=== PATIENT | female | born 1980 | race Caucasian/White ===

== ENCOUNTER 2017-12-06 20:48 | Emergency (ER) | payer SELFPAY ==
[~2017-12-06] VITALS: Ht 172.7 cm; Wt 131.6 kg
[~2017-12-06 20:48] MED LIST: PARO30TA2 PO
[2017-12-06 21:25] VITALS: BP 130/69; PULSE 84; RESP 16; TEMP 99.3; O2SAT 99
--- NOTE | 2017-12-06 21:43 | PD ---
HPI . Headache Chief Complaint: Cold / Flu Symptoms Time Seen by Provider: 21:33 Travel History International Travel<30 days: No Contact w/Intl Traveler<30days: No Traveled to known affect area: No History of Present Illness HPI This patient presents with a 24-hour history of headache, sore throat and myalgias. Her last dose of medicine was about 2:30 PM. She states that she took some Tylenol at that time. She has a child who is ill with very similar symptoms. PFSH Past Medical History Asthma: Yes (H/O, no meds) Anxiety: Yes Depression: Yes Diminished Hearing: No Immunizations Current: Yes Tetanus Vaccination: < 5 Years Influenza Vaccination: No ?: Not LMP: 1 month ago/tubal Tubal Ligation: Yes (2004) Past Surgical History Gynecologic Surgery: Yes Tonsillectomy: Yes (1986) Social History Alcohol Use: No Tobacco Use: No Substance Use: No Allergies-Medications (Allergen,Severity, Reaction): Coded Allergies: No Known Allergies (Verified Adverse Reaction, Unknown, 12/06/17) Reported Meds & Prescriptions Reported Meds & Active Scripts Active No Active Prescriptions or Reported Medications Review of Systems Except as stated in HPI: all other systems reviewed are Neg General / Constitutional: Positive: Fever, Chills HENT: Positive: Headaches, Sore Throat Musculoskeletal: Positive: Myalgias Physical Exam Narrative Vital Signs Date Time Temp Pulse Resp B/P (MAP) Pulse Ox O2 Delivery O2 Flow Rate FiO2 12/06/17 21:30 14 99 Room Air 12/06/17 21:25 99.3 84 16 130/69 (89) 99 GENERAL: Awake and alert and in no acute distress. SKIN: Warm and dry. HEAD: Normocephalic/atraumatic. EYES: Pupils are equal. Extraocular movements are intact. ENT: No significant erythema of the oropharynx. No exudate or tonsillar enlargement. NECK: Normal range of motion. Supple without adenopathy. CARDIOVASCULAR: Regular rate and rhythm. RESPIRATORY: Nonlabored respirations. Lungs are clear with 4 throughout. Delayed MUSCULOSKELETAL: Atraumatic. NEUROLOGICAL: Nonfocal. PSYCHIATRIC: Appropriate mood and affect. Data Data Last Documented VS Vital Signs Date Time Temp Pulse Resp B/P (MAP) Pulse Ox O2 Delivery O2 Flow Rate FiO2 12/06/17 21:30 14 99 Room Air 12/06/17 21:25 99.3 84 130/69 (89) MDM Medical Decision Making Medical Screen Exam Complete: Yes Emergency Medical Condition: Yes Differential Diagnosis Differential diagnosis includes but is not limited to influenza, upper respiratory infection, bronchitis, pneumonia Narrative Course This patient presents with a 24-hour history of cold-like symptoms. She does not appear ill. She will be discharged home with instructions and symptomatic care. Diagnosis Primary Impression: Viral syndrome Patient Instructions: General Instructions, Upper Respiratory Infection (DC) Additional Instructions: I recommend the use of a Neti Pot. You may use a nasal spray such as Afrin for up to 3 days as needed for nasal congestion. You may take an wawl-kux-uuerrea antihistamine such as Zyrtec, Jo or Claritin as needed for runny secretions. You may take pseudoephedrine as needed for congestion. You will need to sign for this at the pharmacy. You may take plain Mucinex, 1200 mg twice a day as needed for thick secretions. You may take a cough syrup such as Delsym as needed for cough. Motrin as needed for fever and body aches. Throat lozenges/sprays as needed for sore throat. Warm salt water gargles for sore throat. Hot tea with lemon and honey also helps soothe a sore throat. Scripts No Active Prescriptions or Reported Meds Disposition: 01 DISCHARGE HOME Condition: Stable Darlene Costa MD Dec 06, 2017 21:43
== END 2017-12-06 21:57 | disposition home or self-care (01) ==
LOC: PHEFT 20:48
DX: B34.9 Viral infection, unspecified (principal)
CPT/HCPCS: 99282

== ENCOUNTER 2018-10-25 15:40 | Inpatient (IN) ==
[2018-10-25 16:01] LABS: Bilirubin,Urine Negative (Negative); Clarity,Urine Clear (Clear); Color,Urine Yellow (Yellw/Straw); Glucose,Urine (UA) Negative (Negative); Leukocyte Esterase,Urine Small (Negative); Nitrite,Urine Negative (Negative); Specific Gravity,Urine 1.015 (1.002-1.035); Urobilinogen,Urine 0.2 mg/dL (Less than 2)
--- NOTE | 2018-10-25 16:12 | ED ---
HPI General Chief Complaint: Abdominal Pain Stated Complaint: Lft Side Abd Pain xYest Time Seen by Provider: 10/25/18 16:06 History of Present Illness HPI narrative: This patient complains of abdominal pain. Duration is 2 days. Severity is moderate. Location is left upper quadrant. She is not having vomiting or diarrhea or fever. She has been able to eat without undue difficulty. There is been no injury. Is worse when she is walking or trying to sit up. No alleviating factors. No exacerbating factors. Related Data Home Medications Medication Instructions Recorded Confirmed No Known Home Medications 10/25/18 10/25/18 Allergies Allergy/AdvReac Type Severity Reaction Status Date / Time No Known Allergies Allergy Verified 10/25/18 15:45 Review of Systems ROS: all other systems reviewed are negative [facility] Medical History Medical History Back pain (Acute) Surgical History Surgical History H/O tubal ligation (Acute) S/P tonsillectomy and adenoidectomy (Acute) Social History Social History Substance History: No History of Abuse Second Hand Smoke Exposure: No Smoking Status: Former smoker Tobacco Type: Cigarettes How Often Do You Have a Drink Containing Alcohol: Monthly or less Recent Travel in [facility] within the Last 8 Weeks: No Recent Out of Country Travel within the Last 8 Weeks: No Immunization History Tetanus Immunization: Unsure Exam Narrative Exam Narrative: GENERAL: Well-nourished, well-developed patient with left upper quadrant pain . SKIN: Focused skin assessment reveals no rash and nodules. Skin is Warm and dry. HEAD: Atraumatic. Normocephalic. EYES: Pupils equal and round. No scleral icterus. No injection or drainage. ENT: No nasal bleeding or discharge. Mucous membranes pink and moist. NECK: Trachea midline. No JVD. CARDIOVASCULAR: Regular rate and rhythm. No murmur appreciated. RESPIRATORY: No accessory muscle use. Clear to auscultation. Breath sounds equal bilaterally. GASTROINTESTINAL: Abdomen soft, left upper quadrant is tender without rebound or guarding , nondistended. Hepatic and splenic margins not palpable. MUSCULOSKELETAL: No obvious deformities. No clubbing. No cyanosis. No edema. NEUROLOGICAL: Awake and alert. No obvious cranial nerve deficits. Motor grossly within normal limits. Normal speech. PSYCHIATRIC: Appropriate mood and affect; insight and judgment normal. Course Initial Documented Vital Signs Temperature 99.5 F 10/25/18 15:42 Pulse Rate 100 H 10/25/18 15:42 Respiratory Rate 16 10/25/18 15:42 Blood Pressure 149/75 H 10/25/18 15:42 Pulse Oximetry 100 10/25/18 15:42 Last Documented Vital Signs Temperature 99.5 F 10/25/18 15:42 Pulse Rate 100 H 10/25/18 15:42 Respiratory Rate 16 10/25/18 15:42 Blood Pressure 149/75 H 10/25/18 15:42 Pulse Oximetry 100 10/25/18 15:42 Medical Decision Making MDM Narrative Medical decision making narrative: 38-year-old female with 2 days of left upper quadrant pain. I have ordered lab studies and a CT to evaluate. She has splenomegaly and a big fibroid uterus. I suspect her blood loss is from heavy vaginal bleeding during period time over many years. She has hemoglobin of 6.6. Her anemia is symptomatic. She is constantly fatigued and tired. I ordered 2 units of packed red cells. She has no physician and no insurance and is not follow-up in the near future. Regarding her abdominal pain and its etiology is not entirely clear. She does have splenomegaly. Case reviewed with hospitalist will admit. She will get blood transfusion and further workup. Rectal exam was done and she has brown Hemoccult negative stool Medical Screen Exam Complete: Yes Emergency Medical Condition: Yes Differential Diagnosis Differential Diagnosis: Hernia, gastric ulcer, pancreatitis Medical Records Medical records reviewed: Yes I reviewed the patient's medical records. Lab Data Lab results reviewed: Yes I reviewed the patient's lab results. Lab results narrative: Significant anemia with hemoglobin of 6.6. Metabolic studies are normal Result diagrams: 10/25/18 16:10 10/25/18 16:10 POC Results POC Urine Results Negative Lab Results 10/25/18 10/25/18 10/25/18 Range/Units 15:50 16:10 16:10 CBC w Diff Slide review pending WBC 9.0 (4.0-11.0) th/mm3 RBC 3.90 L (4.00-5.30) mil/mm3 Hgb 6.6 L* (11.6-15.3) gm/dL Hct 23.0 L (35.0-46.0) % MCV 59.1 L (80.0-100.0) fL MCH 16.8 L (27.0-34.0) pg MCHC 28.5 L (32.0-36.0) % RDW 18.4 H (11.6-17.2) % Plt Count 309 (150-450) th/mm3 MPV 8.3 (7.0-11.0) fL Neut % (Auto) 69.5 (16.0-70.0) % Lymph % (Auto) 25.8 (9.0-44.0) % [place] % (Auto) 3.2 (0.0-8.0) % Eos % (Auto) 1.0 (0.0-4.0) % Baso % (Auto) 0.5 (0.0-2.0) % Neut # (Auto) 6.3 (1.8-7.7) th/mm3 Lymph # (Auto) 2.3 (1.0-4.8) th/mm3 [place] # (Auto) 0.3 (0.0-0.9) th/mm3 Eos # (Auto) 0.1 (0.0-0.4) th/mm3 Baso # (Auto) 0.0 (0.0-0.2) th/mm3 WBC Differential . Diff Scan Auto diff confirmed Differential Comment . Platelet Estimate Normal (Normal) Platelet Morphology Normal (Normal) PT 10.5 (9.8-11.6) sec INR 1.0 Ratio APTT 25.9 (23.4-31.7) sec Sodium (136-145) meq/L Potassium (3.5-5.1) meq/L Chloride (98-107) meq/L Carbon Dioxide (21.0-32.0) meq/L Anion Gap (5-15) meq/L BUN (7-18) mg/dL Creatinine (0.50-1.00) mg/dL Estimated GFR (>89) mL/min Random Glucose (74-106) mg/dL Calcium (8.5-10.1) mg/dL Total Bilirubin (0.2-1.0) mg/dL AST (15-37) U/L ALT (10-53) U/L Alkaline Phosphatase (45-117) U/L Total Protein (6.4-8.2) g/dL Albumin (3.4-5.0) g/dL Lipase (73-393) U/L Urine Color Yellow (Yellw/Straw) Urine Clarity Clear (Clear) Urine pH 7.0 (5.0-8.5) Ur Specific [place] 1.015 (1.002-1.035) Urine Protein Negative (Neg-Trace) mg/dL Urine Glucose (UA) Negative (Negative) mg/dL Urine Ketones Negative (Negative) mg/dL Urine Occult Blood Trace (Negative) Urine Nitrate Negative (Negative) Urine Bilirubin Negative (Negative) Urine Urobilinogen 0.2 (Less than 2) mg/dL Ur Leukocyte Esterase Small H (Negative) Micro UA Comment Culture not ind Ur Microscopic Review Microscopic reviewed Urine Culture Comments Culture not ind 10/25/18 Range/Units 16:10 CBC w Diff WBC (4.0-11.0) th/mm3 RBC (4.00-5.30) mil/mm3 Hgb (11.6-15.3) gm/dL Hct (35.0-46.0) % MCV (80.0-100.0) fL MCH (27.0-34.0) pg MCHC (32.0-36.0) % RDW (11.6-17.2) % Plt Count (150-450) th/mm3 MPV (7.0-11.0) fL Neut % (Auto) (16.0-70.0) % Lymph % (Auto) (9.0-44.0) % [place] % (Auto) (0.0-8.0) % Eos % (Auto) (0.0-4.0) % Baso % (Auto) (0.0-2.0) % Neut # (Auto) (1.8-7.7) th/mm3 Lymph # (Auto) (1.0-4.8) th/mm3 [place] # (Auto) (0.0-0.9) th/mm3 Eos # (Auto) (0.0-0.4) th/mm3 Baso # (Auto) (0.0-0.2) th/mm3 WBC Differential Diff Scan Differential Comment Platelet Estimate (Normal) Platelet Morphology (Normal) PT (9.8-11.6) sec INR Ratio APTT (23.4-31.7) sec Sodium 141 (136-145) meq/L Potassium 3.6 (3.5-5.1) meq/L Chloride 107 (98-107) meq/L Carbon Dioxide 24.8 (21.0-32.0) meq/L Anion Gap 9 (5-15) meq/L BUN 7 (7-18) mg/dL Creatinine 0.68 (0.50-1.00) mg/dL Estimated GFR Greater than 89 (>89) mL/min Random Glucose 111 H (74-106) mg/dL Calcium 7.9 L (8.5-10.1) mg/dL Total Bilirubin 0.2 (0.2-1.0) mg/dL AST 14 L (15-37) U/L ALT 14 (10-53) U/L Alkaline Phosphatase 57 (45-117) U/L Total Protein 6.8 (6.4-8.2) g/dL Albumin 3.1 L (3.4-5.0) g/dL Lipase 153 (73-393) U/L Urine Color (Yellw/Straw) Urine Clarity (Clear) Urine pH (5.0-8.5) Ur Specific [place] (1.002-1.035) Urine Protein (Neg-Trace) mg/dL Urine Glucose (UA) (Negative) mg/dL Urine Ketones (Negative) mg/dL Urine Occult Blood (Negative) Urine Nitrate (Negative) Urine Bilirubin (Negative) Urine Urobilinogen (Less than 2) mg/dL Ur Leukocyte Esterase (Negative) Micro UA Comment Ur Microscopic Review Urine Culture Comments Imaging Data Attestation: I personally reviewed and interpreted this imaging study as follows : My impression: Patient has enlarged fibroid uterus and splenomegaly Radiologist's impression: Abdomen/Pelvis CT 10/25/18 16:06 CONCLUSION: 1. Splenomegaly. 2. Left adnexal cystic mass measuring 4.3 cm is noted likely representing ovarian cyst. 3. Enlarged fibroid uterus. 4. Enlarged liver with mild diffuse fatty infiltration. 5. Distended gallbladder containing stones and sludge which is relatively stable compared to the previous examination in March 2015. Discharge Plan Discharge Disposition Patient Disposition: ED Admit(ED Internal Use Only) Discharge Order Discharge Orders: ED Use Only Admit Order (Routine); Ordered 10/25/18 Ordered By: Sonido Spring Discharge Details Diagnosis: Symptomatic anemia, Abdominal pain Physicians Team ED Provider: Sonido Spring Primary Care Provider: Primary Care Viv Kelly Attending Provider: Kenney Celestin Status ED Status: Admitted Patient
[2018-10-25 16:20] LABS: Baso % (Auto) 0.5 % (0.0-2.0); Eos # (Auto) 0.1 th/mm3 (0.0-0.4); Lymph # (Auto) 2.3 th/mm3 (1.0-4.8); Lymph % (Auto) 25.8 % (9.0-44.0); Mean Corpuscular Hemoglobin 16.8 pg (27.0-34.0); Mean Corpuscular Volume 59.1 fL (80.0-100.0); Mean Platelet Volume 8.3 fL (7.0-11.0); Mono # (Auto) 0.3 th/mm3 (0.0-0.9); Mono % (Auto) 3.2 % (0.0-8.0); Neut # (Auto) 6.3 th/mm3 (1.8-7.7); Neut % (Auto) 69.5 % (16.0-70.0); Platelet Count 309 th/mm3 (150-450); Red Cell Distribution Width 18.4 % (11.6-17.2)
[2018-10-25 16:21] LABS: Mean Corpuscular HGB Conc 28.5 % (32.0-36.0)
[2018-10-25 16:24] LABS: Hemoglobin 6.6 gm/dL (11.6-15.3)
[2018-10-25 16:30] LABS: Activated Partial Thrombo Time 25.9 sec (23.4-31.7); Prothrombin Time 10.5 sec (9.8-11.6)
[2018-10-25 16:38] LABS: Platelet Estimate Normal (Normal)
[2018-10-25 16:39] LABS: Platelet Morphology Normal (Normal)
--- NOTE | 2018-10-25 16:40 | CT ---
EXAM DATE: 10/25/2018 4:30 PM EST AGE/SEX: 38 years / Female INDICATIONS: Sharp left lower abdominal pain since yesterday. CLINICAL DATA: This is the patient's initial encounter. Patient reports that signs and symptoms have been present for 2 days and indicates a pain score of 8/10. MEDICAL/SURGICAL HISTORY: None. Tubal ligation. Tonsillectomy. ORAL CONTRAST: No oral contrast ingested. RADIATION DOSE: 22.34 CTDI (mGy) COMPARISON: [facility], CT ABDOMEN & PELVIS W CONTRAST, 03/16/2015. [facility], CT ABDOMEN & PELVIS W/O CONTRA ST, 04/03/2013. . TECHNIQUE: Multiple contiguous axial images were obtained through the abdomen and pelvis following b olus infusion of 100ml ml Omnipaque 350 (iohexol) nonionic water-soluble contrast as a single exam dose. No oral contrast ingested. Using automated exposure control and adjustment of the mA and/or kV according to patient size, radiation dose was kept as low as reasonably achievable to obtain optimal diagnostic quality images. DICOM format image data is available electronically for review and pushpa rison. FINDINGS: Lower Lungs: The visualized lower lungs are clear. Liver: There is an enlarged liver with mild diffuse fatty infiltration. No focal mass or biliary duct al dilatation is noted. The gallbladder is distended and contains gallstones and sludge but is relati vely stable in appearance compared to the previous examination in March 2015. Spleen: Splenomegaly is noted. Pancreas: Unremarkable without mass or calcification. Kidneys: Normal in size and shape. No evidence of mass or hydronephrosis. Adrenal Glands: Unremarkable. Aorta: The aorta and proximal iliac vessels are grossly unremarkable without aneurysmal dilation. Bowel/Mesentery: The bowel loops are grossly unremarkable. The cecum and sigmoid colon have a normal configuration. The appendix is normal. Abdominal Wall: Intact. Retroperitoneum: No evidence of adenopathy in the retrocrural, para-aortic, or deep pelvic regions. Bladder: Contours are smooth. Reproductive Organs: The uterus is prominent in size consistent with probable fibroid uterus. Left a dnexal cystic mass measuring 4.3 cm is noted likely representing ovarian cyst. Inguinal: The inguinal region is unremarkable without evidence of adenopathy. Bony Structures: Unremarkable. CONCLUSION: 1. Splenomegaly. 2. Left adnexal cystic mass measuring 4.3 cm is noted likely representing ovarian cyst. 3. Enlarged fibroid uterus. 4. Enlarged liver with mild diffuse fatty infiltration. 5. Distended gallbladder containing stones and sludge which is relatively stable compared to the pre vious examination in March 2015. Electronically signed by: Prince Barron MD Board Certified Radiologist 10/25/2018 4:38 PM EST
[2018-10-25 16:42] LABS: Chloride 107 meq/L (98-107); Potassium 3.6 meq/L (3.5-5.1); Sodium 141 meq/L (136-145)
[2018-10-25 16:46] LABS: Albumin 3.1 g/dL (3.4-5.0); Anion Gap 9 meq/L (5-15); Blood Urea Nitrogen 7 mg/dL (7-18); Calcium 7.9 mg/dL (8.5-10.1); Carbon Dioxide 24.8 meq/L (21.0-32.0); Glucose,Random 111 mg/dL (74-106); Lipase 153 U/L (73-393)
[2018-10-25 16:49] LABS: Alanine Aminotransferase 14 U/L (10-53); Aspartate Aminotransferase 14 U/L (15-37); Glomerular Filtration Rate Greater Than 89 mL/min (>89)
[2018-10-25 16:51] LABS: Total Protein 6.8 g/dL (6.4-8.2)
[2018-10-25 16:52] LABS: Alkaline Phosphatase 57 U/L (45-117)
[2018-10-25] MEDS ORDERED: Morphine Inj 4 MG/ML Vial IV.PUSH ONE (17:08)
--- NOTE | 2018-10-25 17:27 | P.HPIM ---
History of Present Illness Primary Care Physician: No Primary Care Physician History of Present Illness: 38 yo F with no known past medical history who presented with LUQ pain x1 day. Pain said to be sharp,non radiating,worse when walking or when she tries to sit up.No known relieving factors. No trauma,no fever or chills. No nausea or vomiting. Patient reports fatigue as well, she is always tired. No leg swelling or shortness of breath. No dizziness or lightheadedness. Reports heavy menses with clots, usually last 4-5 days. ROS is negative. On presentation to ER, patient had stable vitals, labs significant for microcytic anemia. CT abdo/pelvis revealed splenomegaly, fibroid,hepatomegaly. type screen done, pending prbc transfusion. Inpatient Certification Inpatient Certification: I certify that the inpatient services were ordered in accordance with Medicare regulations governing the order. This includes certification that hospital inpatient services are reasonable and necessary and in the case of services not specified as inpatient-only under 42 CFR 419.22(n), that they are appropriately provided as inpatient services in accordance to with the 2-midnight benchmark under 43 CFR 412.3(e) Review of Systems Review of Systems: all other systems reviewed are negative [facility] Medical History Medical History Back pain (Acute) Surgical History Surgical History H/O tubal ligation (Acute) S/P tonsillectomy and adenoidectomy (Acute) Social History Social History Substance History: No History of Abuse Second Hand Smoke Exposure: No Smoking Status: Former smoker Tobacco Type: Cigarettes How Often Do You Have a Drink Containing Alcohol: Monthly or less Recent Travel in [place] within the Last 8 Weeks: No Recent Out of Country Travel within the Last 8 Weeks: No Immunization History Tetanus Immunization: Unsure Medications and Allergies Allergies Allergy/AdvReac Type Severity Reaction Status Date / Time No Known Allergies Allergy Verified 10/25/18 15:45 Home Medications Medication Instructions Recorded Confirmed Type No Known Home Medications 10/25/18 10/25/18 History Active Medications: Active Medications Sodium Chloride (Ns Inj) 250 mls @ 15 mls/hr IV.SIG ONCE JAJA Stop: 10/26/18 10:39 Sodium Chloride (Ns Flush) 2 ml IV.FLUSH PRN PRN PRN Reason: FLUSH AFTER USING IV ACCESS Physical Exam Vital signs: Last Vital Signs Temp 99.5 F 10/25/18 15:42 Pulse 100 H 10/25/18 15:42 Resp 16 10/25/18 15:42 BP 149/75 H 10/25/18 15:42 Pulse Ox 100 10/25/18 15:42 Intake & Output 10/23/18 10/24/18 10/25/18 10/26/18 06:59 06:59 06:59 06:59 Weight 126.9 kg Narrative: GENERAL:Obese young lady in fair general condition, in no apparent distress. HEENT:pale,anicteric. NECK:not pale,anicteric CARDIOVASCULAR: Regular rate and rhythm without murmurs, gallops, or rubs. RESPIRATORY: Clear to auscultation. Breath sounds equal bilaterally. No wheezes , rales, or rhonchi. GASTROINTESTINAL: Abdomen obese,soft, LUQ tenderness+,spleen tip palpable, liver not palpable. Normal active bowel sounds. MUSCULOSKELETAL: Extremities without clubbing, cyanosis, or edema. NEURO: Alert & Oriented x4 to person, place, time, situation. Moves all ext x4 Results Labs CBC & Chem 7: 10/26/18 07:05 10/25/18 16:10 Imaging Impressions Abdomen/Pelvis CT 10/25/18 16:06 CONCLUSION: 1. Splenomegaly. 2. Left adnexal cystic mass measuring 4.3 cm is noted likely representing ovarian cyst. 3. Enlarged fibroid uterus. 4. Enlarged liver with mild diffuse fatty infiltration. 5. Distended gallbladder containing stones and sludge which is relatively stable compared to the previous examination in March 2015. Caprini VTE Risk Assessment Caprini VTE Risk Assessment: No/Low Risk (score <= 1) Caprini Risk Assessment Model: Point Value = 1 Point Value = 2 Point Value = 3 Point Value = 5 Age 41-60 Minor surgery BMI > 25 kg/m2 Swollen legs Varicose veins or History of unexplained or recurrent spontaneous Oral contraceptives or hormone replacement Sepsis (< 1 month) Serious lung disease, including pneumonia (< 1 month) Abnormal pulmonary function Acute myocardial infarction Congestive heart failure (< 1 month) History of inflammatory bowel disease Medical patient at bed rest Age 61-74 Arthroscopic surgery Major open surgery (> 45 min) Laparoscopic surgery (> 45 min) Malignancy Confined to bed (> 72 hours) Immobilizing plaster cast Central venous access Age >= 75 History of VTE Family history of VTE Factor V Leiden Prothrombin [id number] Lupus anticoagulant Anticardiolipin antibodies Elevated serum homocysteine Heparin-induced thrombocytopenia Other congenital or acquired thrombophilia Stroke (< 1 month) Elective arthroplasty Hip, pelvis, or leg fracture Acute spinal cord injury (< 1 month) Prophylaxis Regimen: Total Risk Factor Score Risk Level Prophylaxis Regimen 0-1 Low Early ambulation 2 Moderate Order ONE of the following: *Sequential Compression Device (SCD) *Heparin 5000 units SQ BID 3-4 Higher Order ONE of the following medications: *Heparin 5000 units SQ TID *Enoxaparin/Lovenox 40 mg SQ daily (WT < 150 kg, CrCl > 30 mL/min) *Enoxaparin/Lovenox 30 mg SQ daily (WT < 150 kg, CrCl > 10-29 mL/min) *Enoxaparin/Lovenox 30 mg SQ BID (WT < 150 kg, CrCl > 30 mL/min) AND/OR *Sequential Compression Device (SCD) 5 or more Highest Order ONE of the following medications: *Heparin 5000 units SQ TID (Preferred with Epidurals) *Enoxaparin/Lovenox 40 mg SQ daily (WT < 150 kg, CrCl > 30 mL/min) *Enoxaparin/Lovenox 30 mg SQ daily (WT < 150 kg, CrCl > 10-29 mL/min) *Enoxaparin/Lovenox 30 mg SQ BID (WT < 150 kg, CrCl > 30 mL/min) AND *Sequential Compression Device (SCD) Assessment and Plan Plan 38 yo F with no past medical history who presented with LUQ pain for 1 day, fatigue for a few weeks found to have anemia, splenomegaly. 1. Symptomatic Anemia: microcytic anemia, has h/o heavy menses which may have contributed. will need rn document improvement follow up as outpt for evaluation of fibroids. transfuse prbc check anemia w/up, include retic,ldh,iron, ferritin, hb electrophoresis. start iron sulfate. 2. LUQ pain-- splenomegaly noted on CT abdo. pain control. consult hematology given combination of severe anemia with splenomegaly. 3.Fibroids--pelvic us, can do pelvic US as outpatient. DVT ppx-low risk
[2018-10-25] MEDS ORDERED: Sodium Chlor 0.9% Inj 250 ML IV.SIG SCH (18:00)
[2018-10-25] MEDS ORDERED: Bisacodyl 10 MG Supp RECTAL PRN (18:43)
[2018-10-25] MEDS: Senna/Docusate Sodium 8.6/50 MG Tablet PO SCH (20:08)
[2018-10-26 00:21] VITALS: RESP 18
[2018-10-26] MEDS ORDERED: Acetaminophen 325 MG Tablet PO PRN (00:43)
[2018-10-26 03:18] VITALS: PULSE 72
[2018-10-26 07:53] VITALS: BP 119/69
[2018-10-26 08:16] LABS: Baso % (Auto) 0.5 % (0.0-2.0); Eos # (Auto) 0.1 th/mm3 (0.0-0.4); Hematocrit 27.3 % (35.0-46.0); Hemoglobin 8.1 gm/dL (11.6-15.3); Lymph # (Auto) 1.9 th/mm3 (1.0-4.8); Lymph % (Auto) 23.1 % (9.0-44.0); Mean Corpuscular Hemoglobin 19.1 pg (27.0-34.0); Mean Corpuscular Volume 64.1 fL (80.0-100.0); Mean Platelet Volume 8.1 fL (7.0-11.0); Mono # (Auto) 0.6 th/mm3 (0.0-0.9); Mono % (Auto) 7.1 % (0.0-8.0); Neut # (Auto) 5.8 th/mm3 (1.8-7.7); Neut % (Auto) 68.3 % (16.0-70.0); Platelet Count 276 th/mm3 (150-450); Red Blood Count 4.26 mil/mm3 (4.00-5.30); Red Cell Distribution Width 23.5 % (11.6-17.2); White Blood Count 8.4 th/mm3 (4.0-11.0)
[2018-10-26 08:17] LABS: Mean Corpuscular HGB Conc 29.8 % (32.0-36.0)
[2018-10-26] MEDS: Senna/Docusate Sodium 8.6/50 MG Tablet PO SCH (08:17)
[2018-10-26 09:17] LABS: Platelet Estimate Normal (Normal); Platelet Morphology Normal (Normal)
--- NOTE | 2018-10-26 12:02 | P.PNIM ---
Subjective Interval history: still c/o LUQ pain, tramadol not helping. Physical Exam Vital signs: Last Vital Signs Temp 98.2 F 10/26/18 03:17 Pulse 72 10/26/18 07:52 Resp 18 10/26/18 08:48 BP 119/69 10/26/18 07:52 Pulse Ox 97 10/26/18 03:17 Intake & Output 10/24/18 10/25/18 10/26/18 10/27/18 06:59 06:59 06:59 06:59 Intake Total 0 / 0 Output Total 200 / 200 Balance -200 / -200 Weight 126.8 kg Narrative: GENERAL:Obese young lady in fair general condition, in no apparent distress. HEENT:pale,anicteric. NECK:not pale,anicteric CARDIOVASCULAR: Regular rate and rhythm without murmurs, gallops, or rubs. RESPIRATORY: Clear to auscultation. Breath sounds equal bilaterally. No wheezes , rales, or rhonchi. GASTROINTESTINAL: Abdomen obese,soft, LUQ tenderness+,spleen tip palpable, liver not palpable. Normal active bowel sounds. MUSCULOSKELETAL: Extremities without clubbing, cyanosis, or edema. NEURO: Alert & Oriented x4 to person, place, time, situation. Moves all ext x4 Results Labs CBC & Chem 7: 10/26/18 07:05 10/25/18 16:10 Imaging Imaging: Impressions Abdomen/Pelvis CT 10/25/18 16:06 CONCLUSION: 1. Splenomegaly. 2. Left adnexal cystic mass measuring 4.3 cm is noted likely representing ovarian cyst. 3. Enlarged fibroid uterus. 4. Enlarged liver with mild diffuse fatty infiltration. 5. Distended gallbladder containing stones and sludge which is relatively stable compared to the previous examination in March 2015. Assessment and Plan Plan 38 yo F with no past medical history who presented with LUQ pain for 1 day, fatigue for a few weeks found to have anemia, splenomegaly. 1. Symptomatic Anemia: microcytic anemia, has h/o heavy menses which may have contributed. will need solid waste manager follow up as outpt for evaluation of fibroids. transfuse prbc check anemia w/up, include retic,ldh,iron, ferritin, hb electrophoresis. start iron sulfate. 2. LUQ pain-- splenomegaly noted on CT abdo. pain control. consult hematology given combination of severe anemia with splenomegaly. 3.Fibroids--pelvic us, can do pelvic US as outpatient. DVT ppx-low risk Progress Note: Quality VTE Deep Vein Thrombosis/Pulmonary Embolism Present on Admission: No
[2018-10-26] MEDS: Ferrous Sulfate 325 MG Tablet PO SCH ×2 (12:03→17:11)
[2018-10-26 12:34] LABS: Iron 95 mcg/dL (50-170)
[2018-10-26 12:37] LABS: Ferritin 5 ng/mL (8-252)
[2018-10-26 16:28] VITALS: TEMP 98.7; O2SAT 99
--- NOTE | 2018-10-26 17:16 | P.CON ---
History of Present Illness Service: hematology Consult date: 10/26/18 Primary Care Provider: No Primary Care Physician History of Present Illness: 38 yoF with no medical history prensetd to the ED on 10/25/2018 with abdominal pain of one day duration. CT scan of the abdomna dn pelvise from 10/25 showed left adnexal cystic mass measuring 4.3 cm likely representing ovarian cyst, enlarged fibroid uterus, enlarged liver with fatty infiltration. She was found to be anemic and is s/p transfusion of 2 units of PRBC with appropriate repsone. Ferritin level is 4. Review of Systems All other systems reviewed negative except as stated in HPI PMFSH - History History Provided By: Patient - Medical History Medical History: Medical History (Last Reviewed 10/26/18 @ 17:09 by Dana Adrian) Back pain - Surgical History Surgical History: Surgical History (Last Reviewed 10/26/18 @ 17:09 by Dana Adrian) H/O tubal ligation S/P tonsillectomy and adenoidectomy - Family History Family History: Family History (Last Reviewed 10/26/18 @ 17:09 by Dana Adrian) Father HTN (hypertension) Stroke CAD (coronary artery disease) - Tobacco History Second Hand Smoke Exposure: No Tobacco Use In Past 30 Days: No Smoking Status: Former smoker Tobacco Type: Cigarettes - Alcohol History How Often Do You Have a Drink Containing Alcohol: Monthly or less - Substance Use History Substance History: No History of Abuse - Travel History Recent Travel in the [place] Within the Last 8 Weeks: No Recent Travel Out of the Country Within the Last 8 Weeks: No - Immunization History Tetanus Immunization: Unsure Hx Influenza Vaccine This Season: No Medications and Allergies Active Medications: Active Medications Acetaminophen (Tylenol) 650 mg PO Q4H PRN PRN Reason: Headache, fever Hydrocodone Bitart/Acetaminophen ([place] 5/325) 1 tab PO Q6H PRN PRN Reason: Acute Pain Last Admin: 10/26/18 12:03 Dose: 1 tab Al Hydroxide/Mg Hydroxide (Milk Of Magnesia Liq) 30 ml PO Q12H PRN PRN Reason: Mild Constipation Bisacodyl (Dulcolax Supp) 10 mg RECTAL DAILY PRN PRN Reason: SEVERE CONSITIPATION Ferrous Sulfate (Ferosul) 325 mg PO BID@1200,1700 JAJA Last Admin: 10/26/18 12:03 Dose: 325 mg Lactulose (Lactulose Liq) 30 ml PO DAILY PRN PRN Reason: SEVERE CONSITIPATION Senna/Docusate Sodium (Jazzy-Colace) 1 tab PO BID ON LICENSE OF [facility] Last Admin: 10/26/18 08:17 Dose: 1 tab Sennosides (Senokot) 17.2 mg PO Q12H PRN PRN Reason: Moderate Constipation Sodium Chloride (Ns Flush) 2 ml IV.FLUSH BID ON LICENSE OF [facility] Last Admin: 10/26/18 10:45 Dose: 2 ml Sodium Chloride (Ns Flush) 2 ml IV.FLUSH PRN PRN PRN Reason: FLUSH AFTER USING IV ACCESS Allergies Allergy/AdvReac Type Severity Reaction Status Date / Time No Known Allergies Allergy Verified 10/25/18 15:45 Home Medications Medication Instructions Recorded Confirmed Type No Known Home Medications 10/25/18 10/25/18 History Physical Exam Vital signs: Vital Signs 10/25/18 17:40 10/25/18 18:00 10/25/18 20:00 Temperature 97.8 F 97.9 F Pulse Rate 85 83 79 Respiratory Rate 20 19 20 Blood Pressure 160/73 H 132/63 121/75 Pulse Oximetry 98 98 99 10/25/18 21:19 10/25/18 21:37 10/25/18 23:53 Temperature 98.4 F 98 F 97.9 F Pulse Rate 85 84 77 Respiratory Rate 20 20 19 Blood Pressure 110/63 128/67 118/73 Pulse Oximetry 98 98 99 10/26/18 00:00 10/26/18 00:05 10/26/18 00:21 Temperature 97.9 F 98 F 97.7 F Pulse Rate 77 80 71 Respiratory Rate 19 19 18 Blood Pressure 118/73 117/63 125/61 Pulse Oximetry 99 98 98 10/26/18 03:17 10/26/18 06:00 10/26/18 07:52 Temperature 98.2 F 98.7 F Pulse Rate 72 73 72 Respiratory Rate 18 20 18 Blood Pressure 116/56 L 122/61 119/69 Pulse Oximetry 97 99 10/26/18 08:48 10/26/18 12:00 10/26/18 16:00 Temperature Pulse Rate Respiratory Rate 18 18 18 Blood Pressure Pulse Oximetry Intake & Output 10/25/18 10/26/18 10/26/18 18:59 06:59 18:59 Intake Total 0 / 0 720 / 720 Output Total 200 / 200 600 / 600 Balance -200 / -200 120 / 120 Weight 126.8 kg Intake: Oral 0 / 0 720 / 720 Intake (Blood Product) Amt 0 / 0 Rbc As-3 Leukoreduced Unit 0 / 0 [id number] Rbc As-3 Leukoreduced Unit 0 / 0 [id number] Output: Urine 200 / 200 600 / 600 Other: Weight On Admission 126.8 kg - Constitutional no acute distress - Routine HEENT Exam Head: Present: normocephalic, atraumatic Eye: Present: EOMI, PERRL ENT: Present: mucous membranes moist - Routine Neck Exam Present: supple, full ROM - Routine Respiratory Exam Present: accessory muscle use - Routine Cardiovascular Exam Present: RRR - Routine Abdominal Exam Present: soft, normoactive bowel sounds - Routine Extremities Exam Present: cyanosis, clubbing - Routine Skin Exam Present: intact - Routine Neurological Exam Present: alert - Routine Psychiatric Exam Present: normal affect Results - Labs CBC & Chem 7: 10/26/18 07:05 10/25/18 16:10 Labs: Laboratory Results - last 24 hr 10/25/18 10/26/18 10/26/18 17:15 07:05 07:05 CBC w Diff Slide review pending WBC 8.4 RBC 4.26 Hgb 8.1 L Hct 27.3 L MCV 64.1 L D MCH 19.1 L MCHC 29.8 L RDW 23.5 H D Plt Count 276 MPV 8.1 Neut % (Auto) 68.3 Lymph % (Auto) 23.1 [place] % (Auto) 7.1 Eos % (Auto) 1.0 Baso % (Auto) 0.5 Neut # (Auto) 5.8 Lymph # (Auto) 1.9 [place] # (Auto) 0.6 Eos # (Auto) 0.1 Baso # (Auto) 0.0 WBC Differential . Diff Scan Auto diff confirmed Differential Comment . Platelet Estimate Normal Platelet Morphology Normal Iron 95 Ferritin 5 L Blood Type A Positive Blood Type Recheck Required Antibody Screen Negative MTS Gel Crossmatch See Detail Assessment and Plan - Plan Anemia. With studies consistent with iron deficiency. Will order full iron profile, vitamin B12, folate, haptoglobin, ldh. Will follow up SPEP. Patient denies any constipation, diarrhea, melena, hematochezia. Heavy menstrual periods. Likely LATHA due to menorrhagia. Will need to have stool cards. Will need to have follow up in outpatient hematolgoy clinci. Heavy menstrual periods: patinet will need to have close follow up with gynecology team. Hepatomegaly and splenomegaly: Most likely secondary to fatty liver. Will check flow cytometry to evaluate for unlikely underlying MPN. counseled on weight loss. Above discussed with patient who expressed undertanding.
[2018-10-26 17:22] LABS: Reticulocyte Percent 1.7 % (0.4-3.0)
[2018-10-26 18:05] LABS: % Iron Saturation 23.1 % (20-50)
[2018-10-26 18:13] LABS: Folate 10.7 ng/mL (3.1-17.5)
== END 2018-10-26 18:37 | disposition home or self-care (01) ==
LOC: PHED 15:40 → PHEDA 17:11 → PH3 17:58
PROVIDERS: ADMIT Hospitalist; ATTEND Hospitalist